=== PATIENT | male | born 1985 | race Hispanic/Latino ===

== ENCOUNTER 2020-07-05 20:45 | Emergency (ER) | payer OTHER | END 2020-07-05 21:44 | disposition home or self-care (01) | LOC: NAV ERS 20:45 | DX: T63.461A Toxic effect of venom of wasps, accidental (unintentional), initial encounter (principal) | CPT/HCPCS: 99282 ==

== ENCOUNTER 2022-08-04 12:05 | Emergency (ER) | payer SELFPAY | END 2022-08-04 12:35 | disposition home or self-care (01) | LOC: NAV ERS 12:05 | DX: M70.21 Olecranon bursitis, right elbow (principal) | CPT/HCPCS: 99283 ==

== ENCOUNTER 2022-08-18 01:12 | Emergency (ER) | payer SELFPAY ==
[2022-08-18] MEDS ORDERED: Tetracaine 0.5% PF 4 ML BOT ONE (01:26)
[2022-08-18] MEDS ORDERED: Fluorescein Opthalmic Strip ONE (01:26)
== END 2022-08-18 01:40 | disposition home or self-care (01) ==
LOC: NAV ERS 01:12
DX: H10.9 Unspecified conjunctivitis (principal)
CPT/HCPCS: 99282